=== PATIENT | female | born 1940 | race Hispanic/Latino ===

== ENCOUNTER 2017-01-05 07:13 | Outpatient (CLI) | payer MEDICARE, OTHER ==
--- NOTE | 2017-01-06 13:55 | Magnetic Resonance Report ---
MRI RIGHT KNEE WITHOUT CONTRAST: 01/05/17 CLINICAL: Internal derangement right knee. TECHNIQUE: Sagittal proton density fat sat and T2, coronal T2 fat sat and proton density and axial gradient T2*sequences on a 1.5 Aspen magnet. FINDINGS: Torn anterior horn lateral meniscus with lateral extrusion of the disc fragment. Moderate osteoarthritis of the lateral joint space with osteophytes. The medial meniscus is intact. However, moderate osteoarthritis of the medial joint space with osteophytes. Irregularity of the medial femoral cartilage. The lateral femoral cartilage is intact. Intact cruciate ligaments and collateral ligaments. The collateral ligaments are intact. Intact popliteus tendon. No bone contusion or fracture. A benign cyst of the lateral tibial plateau measures 1.1 cm. Large knee joint effusion. 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 The patellar retinaculum and tendon are intact. No popliteal cyst. IMPRESSION: 1. Old tear of the anterior horn lateral meniscus with a displaced fragment and moderate osteoarthritis of the lateral joint space. 2. Intact medial meniscus but moderate osteoarthritis of the medial joint space. 3. No ligamentous injury. 4. 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 5. Large knee joint effusion. 6. Benign cyst of the lateral tibial plateau.
== END 2017-01-05 07:14 | disposition home or self-care (01) ==
LOC: MRI 07:13
PROVIDERS: ATTEND Orthopaedic Surgery
DX: M23.241 Derangement of anterior horn of lateral meniscus due to old tear or injury, right knee (principal); M17.11 Unilateral primary osteoarthritis, right knee; M22.41 Chondromalacia patellae, right knee; M25.861 Other specified joint disorders, right knee
CPT/HCPCS: 73721

== ENCOUNTER 2020-06-18 08:32 | Outpatient (CLI) | payer MEDICARE, OTHER ==
[2020-06-18 09:39] LABS: ABG Base Excess 0.9 mmol/L (-2.0-3.0); ABG HCO3 25.1 mmol/L (20.0-26.0); ABG Methemoglobin 0.4 % (0.0-1.5); ABG PCO2 38.9 mm Hg; ABG PH 7.429 pH Units (7.350-7.450); ABG PO2 87.4 mm Hg (80.0-90.0)
== END 2020-06-18 08:33 | disposition home or self-care (01) ==
LOC: LAB 08:32
PROVIDERS: ATTEND Internal Medicine
DX: E78.00 Pure hypercholesterolemia, unspecified (principal); E03.9 Hypothyroidism, unspecified; R05 Cough; U07.1 COVID-19; J12.82 Pneumonia due to coronavirus disease 2019; I10 Essential (primary) hypertension; Z86.16 Personal history of COVID-19
CPT/HCPCS: 36415; 36600; 82550; 82728; 82803; 83615; 84484; 85379; 86140

== ENCOUNTER 2020-07-01 08:09 | Outpatient (CLI) | payer MEDICARE, OTHER ==
--- NOTE | 2020-07-01 10:08 | Cat Scan Report ---
CTA CHEST WITH CONTRAST INDICATION : Short of breath. TECHNIQUE: Axial imaging performed through the chest, with contrast bolus timing set to maximize opa cification of the pulmonary arteries. Sagittal and coronal reformatted images. 3-plane MIP reformatte d images were obtained. All CT scans at this location are performed using CT dose reduction for ALAR A by means of automated exposure control. 100 mL of intravenous contrast administered. COMPARISON: 03/04/2020 FINDINGS: Bolus: Contrast bolus timing is adequate. PTE: No filling defect is present to suggest PTE. Mediastinum: Heart size is normal. No pericardial effusion. Mild atherosclerotic disease and tortuos ity of the aorta is again noted. No pathologic mediastinal adenopathy. Lungs: The right hemidiaphragm remains elevated or eventrated. Bilateral infiltrates have resolved s lisa the previous exam. Mild underlying congestive changes or nonspecific groundglass infiltrates rem ain. No pleural effusion or pneumothorax. Bones: Degenerative changes in the spine with nothing acute. Upper abdomen: Limited imaging of the upper abdomen shows nothing acute. IMPRESSION: No evidence for pulmonary embolus. Persistent elevation of the right hemidiaphragm. Bilateral lung infiltrates have resolved since 03/04. There are nonspecific subtle groundglass densities in both lungs which could represent congest kayla changes. Signer Name: Andrei Daly Jr, MD Signed: 07/01/2020 10:04 AM Workstation Name: [id number]
== END 2020-07-01 08:10 | disposition home or self-care (01) ==
LOC: CT 08:09
PROVIDERS: ATTEND Internal Medicine
DX: J98.4 Other disorders of lung (principal); I70.0 Atherosclerosis of aorta; I26.99 Other pulmonary embolism without acute cor pulmonale; Q25.46 Tortuous aortic arch
CPT/HCPCS: 36415; 71275; 82565; 84520; Q9967

== ENCOUNTER 2021-10-12 10:38 | Inpatient (IN) | payer OTHER, MEDICARE ==
[2021-10-12] MEDS ORDERED: SODIUM CHLORIDE 0.9% 500 ML 500 ML IV ONE (11:43)
[2021-10-12] MEDS ORDERED: MORPHINE 4 MG/1 ML INJ IV ONE ×2 (11:43→15:22)
[2021-10-12] MEDS ORDERED: ONDANSETRON 4 MG/2 ML INJ IV ONE (11:43)
[2021-10-12] MEDS ORDERED: LIDOCAINE (1%) 10 MG/1 ML VIAL 20 ML MDV INFILTRATI ONE ×2 (11:45→13:00)
[2021-10-12] MEDS ORDERED: SODIUM CHLORIDE 0.9% IRR 500 ML BOTTLE IR ONE ×2 (11:45→11:46)
[2021-10-12] MEDS ORDERED: TETANUS,DIPH,PERTUSS(ACELL) VACCINE 0.5 ML SYRINGE IM ONE (11:46)
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
[2021-10-12 12:29] LABS: Hematocrit 38.9 % (30.3-42.9); Hemoglobin 12.8 gm/dl (10.1-14.3); Mean Corpuscular HGB Conc 33 % (30-34); Mean Corpuscular Volume 94 fl (79-97); Platelet Count 177 K/mm3 (140-440); Red Blood Count 4.15 M/mm3 (3.65-5.03); Red Cell Distribution Width 14.6 % (13.2-15.2)
[2021-10-12 12:38] LABS: INR 0.93 (0.87-1.13)
[2021-10-12 12:53] LABS: Alanine Aminotransferase 19 units/L (7-56); Albumin 3.8 g/dL (3.9-5); BUN/Creatinine Ratio 16; Blood Urea Nitrogen 14 mg/dL (7-17); Calcium 9.4 mg/dL (8.4-10.2); Hemolysis Index 7
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
--- NOTE | 2021-10-12 13:06 | XRay Report ---
EXAMINATION: Bilateral forearm radiograph, 2 views, 10/12/2021 CLINICAL INFORMATION / INDICATION: Arm pain. History of fall. COMPARISON: None. FINDINGS: Right forearm: There is no evidence of acute fracture or dislocation. Left forearm: There is no evidence of acute fracture or dislocation. IMPRESSION: 1. No radiographic abnormality of acute traumatic finding of either forearm. Signer Name: Martha Smith MD Signed: 10/12/2021 1:01 PM Workstation Name: [employer]
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
[2021-10-12] MEDS ORDERED: MORPHINE 2 MG/1 ML INJ IV ONE (13:44)
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
[2021-10-12] MEDS ORDERED: POTASSIUM CHLORIDE ER 20 MEQ TAB PO ONE (14:13)
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
[2021-10-12 14:40] LABS: Band Neutrophils # (Manual) 0.3 K/mm3; Basophils % (Manual) 0 % (0.0-1.8); Eosinophils % (Manual) 0 % (0.0-4.3); Platelet Estimate Consistent w Auto; RBC Morphology Normal; Total Cells Counted 100
[2021-10-12] MEDS ORDERED: POTASSIUM CHLORIDE 10 MEQ 10 MEQ/100 ML BAG IV SCH (15:00)
[2021-10-12] MEDS ORDERED: ONDANSETRON 4 MG/2 ML INJ IV PRN (18:22)
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
[2021-10-12] MEDS: MORPHINE 2 MG/1 ML INJ IV PRN (19:12)
[2021-10-12] MEDS: SODIUM CHLORIDE 0.9% 1000 ML 1,000 ML IV SCH (19:13)
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
[2021-10-13] MEDS: MORPHINE 2 MG/1 ML INJ IV PRN (02:00)
[2021-10-13 06:29] LABS: Basophils % (Auto) 0.2 % (0.0-1.8); Hematocrit 32.2 % (30.3-42.9); Hemoglobin 10.9 gm/dl (10.1-14.3); Lymphocytes # (Auto) 1.3 K/mm3 (1.2-5.4); Lymphocytes % (Auto) 14.7 % (13.4-35.0); Mean Corpuscular HGB Conc 34 % (30-34); Mean Corpuscular Volume 94 fl (79-97); Monocytes # (Auto) 0.7 K/mm3 (0.0-0.8); Monocytes % (Auto) 7.4 % (0.0-7.3); Platelet Count 121 K/mm3 (140-440); Red Blood Count 3.44 M/mm3 (3.65-5.03); Red Cell Distribution Width 14.9 % (13.2-15.2)
[2021-10-13 06:48] LABS: Alanine Aminotransferase 17 units/L (7-56); Albumin 3.6 g/dL (3.9-5); Blood Urea Nitrogen 13 mg/dL (7-17); Hemolysis Index 7
[2021-10-13 06:54] LABS: BUN/Creatinine Ratio 19
[2021-10-13] MEDS ORDERED: [UNRECOGNIZED DRUG - OTHER] MC PRN (07:13)
[2021-10-13] MEDS ORDERED: NON-FORMULARY EACH (Albuterol Sulfate [Albuterol 0.63% Nebs] 0.63 MG/3 ML Vial.Neb) IH PRN (07:13)
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
[2021-10-13] MEDS: oxyCODONE /ACETAMINOPHEN 5-325MG TAB PO PRN ×2 (08:06→21:50)
--- NOTE | 2021-10-13 09:47 | Electrocardiograph Report ---
[facility] Test Date: 2021-10-12 Test Time: 11:18:14 Pat Name: DINORA CHUNG Department: Room: A471 Gender: F Mothers Helper: kary : 1940 Requested By: KULDEEP ORTIZ Order Number: [id number] Reading MD: Andre Hayward Measurements Intervals [place] Rate: 56 P: -11 LA: 203 QRS: -18 QRSD: 141 T: -65 QT: 448 QTc: 432 Interpretive Statements Sinus bradycardia Right bundle branch block LVH with secondary repolarization abnormality No previous ECG available for comparison Electronically Signed On 10-13-2021 9:47:34 EDT by Andre Hayward
[2021-10-13] MEDS ORDERED: DEXAMETHASONE 2 MG TAB PO SCH (10:00)
[2021-10-13] MEDS: BUMETANIDE 1 MG TAB PO SCH (10:37)
[2021-10-13] MEDS: POTASSIUM CHLORIDE ER 20 MEQ TAB PO SCH (10:38)
[2021-10-13] MEDS: IPRATROPIUM 0.02% NEBU 2.5 ML IH SCH ×2 (10:40→17:11)
[2021-10-13] MEDS: COLCHICINE 0.6 MG TAB PO SCH (10:47)
[2021-10-13] MEDS: LEVOTHYROXINE 75 MCG TAB PO SCH (10:55)
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
[2021-10-13] MEDS: ALBUTEROL 2.5 MG/3 ML NEBU IH PRN (21:16)
[2021-10-13] MEDS: SENNOSIDES 8.6 MG TAB PO SCH (21:36)
[2021-10-13] MEDS: PRAVASTATIN 40 MG TAB PO SCH (21:36)
[2021-10-13] MEDS: PROPRANOLOL LA 80 MG CAP PO SCH (21:36)
[2021-10-13] MEDS ORDERED: PROPRANOLOL HCL 80 MG PO SCH (22:00)
[2021-10-13] MEDS ORDERED: NON-FORMULARY EACH (Simvastatin [Simvastatin] 20 MG Tablet) PO SCH (22:00)
[2021-10-14] MEDS: IPRATROPIUM 0.02% NEBU 2.5 ML IH SCH ×4 (00:39→23:18)
[2021-10-14] MEDS: SODIUM CHLORIDE 0.9% 1000 ML 1,000 ML IV SCH ×2 (03:23→18:22)
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
[2021-10-14] MEDS: LEVOTHYROXINE 75 MCG TAB PO SCH (10:15)
[2021-10-14] MEDS: ACETAMINOPHEN 325 MG TAB PO PRN ×3 (10:15→23:16)
[2021-10-14] MEDS: BUMETANIDE 1 MG TAB PO SCH (10:15)
[2021-10-14] MEDS: COLCHICINE 0.6 MG TAB PO SCH (10:16)
[2021-10-14] MEDS: POTASSIUM CHLORIDE ER 20 MEQ TAB PO SCH (10:16)
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
--- NOTE | 2021-10-14 14:22 | Cat Scan Report ---
CT head/brain wo con INDICATION / CLINICAL INFORMATION: 81 years Female; confusion. TECHNIQUE: Routine CT head without contrast. All CT scans at this location are performed using CT dos e reduction for ALARA by means of automated exposure control. COMPARISON: The study is compared to previous CT of 10/12/2021. FINDINGS: BRAIN / INTRACRANIAL CONTENTS: There is mild cerebral white matter disease most consistent with micro vascular angiopathy. Is also mild cerebral atrophy. The ventricular system remains appropriate in siz e and configuration. The motion degrades the image quality. However, there is no clear CT evidence of acute intracranial hemorrhage or significant mass effect. ORBITS: No significant abnormality of visualized orbits. SINUSES / MASTOIDS: No significant abnormality in the visualized paranasal sinuses or mastoid air nigel ls. CRANIOCERVICAL JUNCTION: No significant abnormality. ADDITIONAL FINDINGS: None. IMPRESSION: 1. There is mild microvascular angiopathy and cerebral atrophy as described without CT evidence of ac nancy intracranial hemorrhage. Signer Name: Christopher Bernardo MD Signed: 10/14/2021 2:17 PM Workstation Name: [id number]
[2021-10-14] MEDS: PROPRANOLOL LA 80 MG CAP PO SCH (21:09)
[2021-10-14] MEDS: PRAVASTATIN 40 MG TAB PO SCH (21:09)
[2021-10-14] MEDS: SENNOSIDES 8.6 MG TAB PO SCH (22:10)
[2021-10-15] MEDS: SODIUM CHLORIDE 0.9% 1000 ML 1,000 ML IV SCH (06:01)
[2021-10-15] MEDS: LEVOTHYROXINE 75 MCG TAB PO SCH (06:01)
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
[2021-10-15] MEDS: IPRATROPIUM 0.02% NEBU 2.5 ML IH SCH ×2 (08:56→16:43)
[2021-10-15] MEDS: ACETAMINOPHEN 325 MG TAB PO PRN ×2 (09:59→16:41)
[2021-10-15] MEDS: COLCHICINE 0.6 MG TAB PO SCH (10:00)
[2021-10-15] MEDS: POTASSIUM CHLORIDE ER 20 MEQ TAB PO SCH (10:00)
[2021-10-15] MEDS: BUMETANIDE 1 MG TAB PO SCH (10:00)
[2021-10-15] MEDS: PRAVASTATIN 40 MG TAB PO SCH (21:44)
[2021-10-15] MEDS: SENNOSIDES 8.6 MG TAB PO SCH (21:44)
[2021-10-15] MEDS: PROPRANOLOL LA 80 MG CAP PO SCH (21:51)
[2021-10-16] MEDS: IPRATROPIUM 0.02% NEBU 2.5 ML IH SCH ×3 (00:29→15:57)
[2021-10-16] MEDS: LEVOTHYROXINE 75 MCG TAB PO SCH (05:22)
[2021-10-16] MEDS: ACETAMINOPHEN 325 MG TAB PO PRN ×2 (06:59→23:23)
[2021-10-16] MEDS: SODIUM CHLORIDE 0.9% 1000 ML 1,000 ML IV SCH (07:02)
[2021-10-16] MEDS: MORPHINE 2 MG/1 ML INJ IV PRN ×2 (08:01→14:35)
[2021-10-16] MEDS: ALBUTEROL 2.5 MG/3 ML NEBU IH PRN ×2 (08:07→15:57)
[2021-10-16] MEDS: POTASSIUM CHLORIDE ER 20 MEQ TAB PO SCH (09:12)
[2021-10-16] MEDS: BUMETANIDE 1 MG TAB PO SCH (09:12)
[2021-10-16] MEDS: COLCHICINE 0.6 MG TAB PO SCH (09:12)
--- NOTE | 2021-10-16 09:13 | XRay Report ---
XR chest 1V ap INDICATION / CLINICAL INFORMATION: pain. COMPARISON: CT chest from 10/12/2021. FINDINGS: SUPPORT DEVICES: None. HEART /PULMONARY VASCULATURE: Stable. LUNGS / PLEURA: Elevated right hemidiaphragm. Markedly diminished lung volumes with unchanged mild bi lateral pulmonary opacities, better demonstrated on recent CT. No sizable pleural effusion. No pneumo thorax. ADDITIONAL FINDINGS: No significant additional findings. IMPRESSION: No significant change. Signer Name: Eliud Nelson MD Signed: 10/16/2021 9:08 AM Workstation Name: [id number]
[2021-10-16 11:02] LABS: ABG Base Excess 3.1 mmol/L (-2.0-3.0); ABG HCO3 28.1 mmol/L (20.0-26.0); ABG Methemoglobin 0.4 % (0.0-1.5); ABG PCO2 44.7 mm Hg; ABG PH 7.416 pH Units (7.350-7.450); ABG PO2 46.2 mm Hg (80.0-90.0)
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
[2021-10-16] MEDS: SENNOSIDES 8.6 MG TAB PO SCH (22:55)
[2021-10-16] MEDS: PRAVASTATIN 40 MG TAB PO SCH (22:55)
[2021-10-16] MEDS: PROPRANOLOL LA 80 MG CAP PO SCH (22:55)
[2021-10-17] MEDS: IPRATROPIUM 0.02% NEBU 2.5 ML IH SCH ×3 (00:34→15:31)
[2021-10-17] MEDS: SODIUM CHLORIDE 0.9% 1000 ML 1,000 ML IV SCH ×2 (06:07→06:13)
[2021-10-17] MEDS: LEVOTHYROXINE 75 MCG TAB PO SCH (06:07)
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
[2021-10-17] MEDS: BUMETANIDE 1 MG TAB PO SCH (09:01)
[2021-10-17] MEDS: POTASSIUM CHLORIDE ER 20 MEQ TAB PO SCH (09:02)
[2021-10-17] MEDS: COLCHICINE 0.6 MG TAB PO SCH (09:03)
[2021-10-17 11:46] LABS: Alanine Aminotransferase 17 units/L (7-56); Albumin 3.5 g/dL (3.9-5); Blood Urea Nitrogen 10 mg/dL (7-17); Calcium 8.2 mg/dL (8.4-10.2); Hemolysis Index 4
[2021-10-17 11:52] LABS: BUN/Creatinine Ratio 17
[2021-10-17 12:25] LABS: Basophils % (Auto) 0.1 % (0.0-1.8); Eosinophils # (Auto) 0.1 K/mm3 (0.0-0.4); Eosinophils % (Auto) 0.7 % (0.0-4.3); Hematocrit 34.2 % (30.3-42.9); Hemoglobin 11.4 gm/dl (10.1-14.3); Lymphocytes # (Auto) 1.3 K/mm3 (1.2-5.4); Lymphocytes % (Auto) 19.1 % (13.4-35.0); Mean Corpuscular HGB Conc 33 % (30-34); Mean Corpuscular Volume 93 fl (79-97); Monocytes # (Auto) 0.6 K/mm3 (0.0-0.8); Monocytes % (Auto) 9.4 % (0.0-7.3); Platelet Count 170 K/mm3 (140-440); Red Blood Count 3.68 M/mm3 (3.65-5.03); Red Cell Distribution Width 14.6 % (13.2-15.2)
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
[2021-10-17] MEDS: ACETAMINOPHEN 325 MG TAB PO PRN (14:03)
[2021-10-17] MEDS ORDERED: MORPHINE 2 MG/1 ML INJ IV PRN (16:03)
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
[2021-10-17] MEDS: SENNOSIDES 8.6 MG TAB PO SCH (21:19)
[2021-10-17] MEDS: PRAVASTATIN 40 MG TAB PO SCH (21:20)
[2021-10-17] MEDS: PROPRANOLOL LA 80 MG CAP PO SCH ×3 (21:25→22:01)
[2021-10-18] MEDS: IPRATROPIUM 0.02% NEBU 2.5 ML IH SCH ×3 (00:47→15:39)
[2021-10-18] MEDS: LEVOTHYROXINE 75 MCG TAB PO SCH (05:56)
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
[2021-10-18] MEDS: BUMETANIDE 1 MG TAB PO SCH (09:07)
[2021-10-18] MEDS: POTASSIUM CHLORIDE ER 20 MEQ TAB PO SCH (09:07)
[2021-10-18] MEDS: COLCHICINE 0.6 MG TAB PO SCH (09:08)
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
[2021-10-18] MEDS: PROPRANOLOL LA 80 MG CAP PO SCH (21:12)
[2021-10-18] MEDS: SENNOSIDES 8.6 MG TAB PO SCH (21:12)
[2021-10-18] MEDS: PRAVASTATIN 40 MG TAB PO SCH (21:12)
[2021-10-19] MEDS: IPRATROPIUM 0.02% NEBU 2.5 ML IH SCH ×3 (00:37→16:42)
[2021-10-19] MEDS: LEVOTHYROXINE 75 MCG TAB PO SCH (05:26)
[2021-10-19] MEDS: POTASSIUM CHLORIDE ER 20 MEQ TAB PO SCH (10:08)
[2021-10-19] MEDS: COLCHICINE 0.6 MG TAB PO SCH (10:09)
[2021-10-19] MEDS: BUMETANIDE 1 MG TAB PO SCH (10:11)
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
[2021-10-19] MEDS: PROPRANOLOL LA 80 MG CAP PO SCH (21:46)
[2021-10-19] MEDS: SENNOSIDES 8.6 MG TAB PO SCH (21:46)
[2021-10-19] MEDS: PRAVASTATIN 40 MG TAB PO SCH (21:47)
[2021-10-20] MEDS: IPRATROPIUM 0.02% NEBU 2.5 ML IH SCH (00:16)
[2021-10-20] MEDS: LEVOTHYROXINE 75 MCG TAB PO SCH (05:40)
[2021-10-20] MEDS: ALBUTEROL 2.5 MG/3 ML NEBU IH PRN (07:49)
[2021-10-20 07:58] VITALS: BP 126/60
[2021-10-20] MEDS ORDERED: IPRATROPIUM 0.02% NEBU 2.5 ML IH SCH (08:00)
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
[2021-10-20] MEDS: BUMETANIDE 1 MG TAB PO SCH (09:36)
[2021-10-20] MEDS: POTASSIUM CHLORIDE ER 20 MEQ TAB PO SCH (09:37)
[2021-10-20] MEDS: COLCHICINE 0.6 MG TAB PO SCH ×2 (09:37→10:03)
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
== END 2021-10-20 12:50 | disposition home or self-care (01) | DRG 183 ==
LOC: ED 10:38 → 4A 18:22
PROVIDERS: ADMIT Internal Medicine; ATTEND Student in an Organized Health Care Education/Training Program
PROC: 0HQ1XZZ Repair Face Skin, External Approach (ICD-10-PCS; 2021-10-12)
PROC: 4A033R1 Measurement of Arterial Saturation, Peripheral, Percutaneous Approach (ICD-10-PCS; principal; 2021-10-16)
DX: S22.41XA Multiple fractures of ribs, right side, initial encounter for closed fracture (principal); J96.01 Acute respiratory failure with hypoxia; I50.40 Unspecified combined systolic (congestive) and diastolic (congestive) heart failure; S27.321A Contusion of lung, unilateral, initial encounter; S20.219A Contusion of unspecified front wall of thorax, initial encounter; S00.12XA Contusion of left eyelid and periocular area, initial encounter; E03.9 Hypothyroidism, unspecified; I11.0 Hypertensive heart disease with heart failure; V49.9XXA Car occupant (driver) (passenger) injured in unspecified traffic accident, initial encounter; Y93.89 Activity, other specified; Y92.488 Other paved roadways as the place of occurrence of the external cause; Y99.8 Other external cause status; E87.6 Hypokalemia; J44.9 Chronic obstructive pulmonary disease, unspecified; E78.2 Mixed hyperlipidemia; D69.6 Thrombocytopenia, unspecified; Z90.49 Acquired absence of other specified parts of digestive tract; Z82.49 Family history of ischemic heart disease and other diseases of the circulatory system; Z86.16 Personal history of COVID-19; Z90.710 Acquired absence of both cervix and uterus; Z88.8 Allergy status to other drugs, medicaments and biological substances
CPT/HCPCS: 36415; 36600; 70450; 71045; 71260; 72125; 74177; 80053; 82550; 82803; 83690; 84484; 85007; 85025; 85610; 87076; 87086; 87186; 90715; 93005; 94640; 94760; G0378; J2270; J2405; J3480; J7030; J7040; J8540; Q9967